=== PATIENT | male | born 1985 | race African-American/Black ===

== ENCOUNTER 2020-09-15 23:01 | Emergency (ER) | payer SELFPAY ==
[2020-09-15 23:42] LABS: #Basophils 0.1 thou/uL (0.0-0.2); #Eosinphils 0.2 thou/uL (0.0-0.7); #Lymphocytes 2.1 thou/uL (1.20-3.40); #Monocytes 0.6 thou/uL (0.11-0.59); #Neutrophils 4.8 thou/uL (1.40-6.50); %Basophils 0.8 % (0.0-1.0); %Eosinophils 2.5 % (0.0-10.0); %Lymphocytes 26.9 % (21.0-51.0); %Monocytes 7.7 % (0.0-10.0); %Neutrophils 62.1 % (42.0-75.0); Hemoglobin 14.2 g/dL (14.0-18.0); Mean Corpuscular HGB CONC 33.1 g/dL (32.0-36.0); Mean Corpuscular Hemoglobin 31.8 pg (27.0-31.0); Mean Corpuscular Volume 96.1 fL (78.0-98.0); Mean Platelet Volume 7.1 fL (7.4-10.4); Platelet Count 207 thou/uL (130-400); Red Blood Cell (RBC) Count 4.47 mill/uL (4.70-6.10); White Blood Cell (WBC) Count 7.7 thou/uL (4.8-10.8)
[2020-09-16 00:02] LABS: Anion Gap 11 mmol/L (10-20); BUN (Urea Nitrogen) 13 mg/dL (8.9-20.6); Calc. Creatinine Clearance 0 mL/min (70-130); Carbon Dioxide 25 mmol/L (22-29); Chloride 108 mmol/L (98-107); Potassium 4.1 mmol/L (3.5-5.1); Sodium 140 mmol/L (136-145)
[2020-09-16 00:03] LABS: ALT (SGPT) 15 U/L (8-55); AST (SGOT) 23 U/L (5-34); Albumin 4.1 g/dL (3.5-5.0); Alkaline Phosphatase 93 U/L (40-110); Bilirubin, Total 0.2 mg/dL (0.2-1.2); Calcium 9.5 mg/dL (7.8-10.44); Globulin 3.2 g/dL (2.4-3.5); Glucose 125 mg/dL (70-105); Protein, Total 7.3 g/dL (6.0-8.3)
== END 2020-09-16 02:25 | disposition home or self-care (01) ==
LOC: ERS 23:01
DX: K02.9 Dental caries, unspecified (principal); R42 Dizziness and giddiness; F17.210 Nicotine dependence, cigarettes, uncomplicated
CPT/HCPCS: 36415; 80053; 85025; 93005

== ENCOUNTER 2020-12-08 05:36 | Emergency (ER) | payer SELFPAY ==
[2020-12-08] MEDS ORDERED: Lidocaine 2% PF 5 ML VIAL ONE (07:15)
[2020-12-08] MEDS ORDERED: Boostrix 0.5 ML (Tdap) VIAL ONE (08:36)
== END 2020-12-08 09:04 | disposition home or self-care (01) ==
LOC: ERS 05:36
DX: S61.411A Laceration without foreign body of right hand, initial encounter (principal); W25.XXXA Contact with sharp glass, initial encounter; Y99.0 Civilian activity done for income or pay; F17.210 Nicotine dependence, cigarettes, uncomplicated
CPT/HCPCS: 12002; 90471; 90715; J2001

== ENCOUNTER 2020-12-20 15:42 | Emergency (ER) | payer SELFPAY | END 2020-12-20 16:10 | disposition home or self-care (01) | LOC: ERS 15:42 | DX: S61.411D Laceration without foreign body of right hand, subsequent encounter (principal); W25.XXXD Contact with sharp glass, subsequent encounter; Y99.0 Civilian activity done for income or pay ==

== ENCOUNTER 2021-03-07 16:51 | Emergency (ER) | payer SELFPAY ==
[2021-03-07] MEDS ORDERED: Ketorolac Tromethamine 30 MG/ML VIAL ONE (17:46)
== END 2021-03-07 18:08 | disposition home or self-care (01) ==
LOC: ERS 16:51
DX: M79.641 Pain in right hand (principal); M79.642 Pain in left hand; F17.210 Nicotine dependence, cigarettes, uncomplicated
CPT/HCPCS: 96372; J1885

== ENCOUNTER 2021-04-09 08:41 | Emergency (ER) | payer SELFPAY | END 2021-04-09 09:49 | disposition home or self-care (01) | LOC: ERS 08:41 | DX: M25.571 Pain in right ankle and joints of right foot (principal); F17.210 Nicotine dependence, cigarettes, uncomplicated ==

== ENCOUNTER 2021-10-02 11:51 | Emergency (ER) | payer SELFPAY | END 2021-10-02 13:20 | disposition home or self-care (01) | LOC: ERS 11:51 | DX: M79.641 Pain in right hand (principal); F17.210 Nicotine dependence, cigarettes, uncomplicated ==

== ENCOUNTER 2021-12-05 03:22 | Emergency (ER) | payer SELFPAY | END 2021-12-05 04:49 | disposition home or self-care (01) | LOC: ERS 03:22 | DX: R19.7 Diarrhea, unspecified (principal) | CPT/HCPCS: 99283 ==